=== PATIENT | female | born 1980 | race Caucasian/White ===

== ENCOUNTER 2018-10-22 07:49 | Emergency (ER) | payer BC ==
[2018-10-22] MEDS ORDERED: traMADol HCL 50 MG TAB PO ONE (08:10)
[2018-10-22] MEDS ORDERED: IBUPROFEN 200 MG TAB PO ONE (08:10)
--- NOTE | 2018-10-22 08:14 | ED.PDOC ---
History of Present Illness - General Chief Complaint: Lower Extremity Injury Stated Complaint: L knee discomfort Time Seen by Provider: 10/22/18 08:09 Source: patient Exam Limitations: no limitations - History of Present Illness Initial Comments: patient comes in today with severe left knee pain. Patient had bent the uriarte yesterday and fell into a hole filling a sudden pull on her leg. She did have pain at that time but she was able to weight-bear and went home and got rest. On awakening however she tried to get up and could not put any pressure on that knee. Patient states the pain is severe and she's never had injury to that knee before. She is otherwise healthy with no medical problems. Patient has no known drug allergies. Patient does take BuSpar for anxiety. Occurred: yesterday Pain - Lower Extremity: severe: Left Knee Method of Injury: twisted Improving Factors: immobilization Worsening Factors: movement Allergies/Adverse Reactions: Allergies NO KNOWN ALLERGY Allergy (Verified 10/22/18 07:55) Home Medications: Ambulatory Orders Buspirone HCl 15 mg PO BID 10/22/18 Tramadol HCl [Ultram] 50 mg PO TID PRN #10 tab 10/22/18 Review of Systems - Review of Systems Constitutional: States: no symptoms reported. Denies: chills, fever EENTM: States: no symptoms reported. Denies: blurred vision, ear discharge Respiratory: States: no symptoms reported. Denies: cough, short of breath Cardiology: States: no symptoms reported. Denies: chest pain, palpitations Gastrointestinal/Abdominal: States: no symptoms reported. Denies: abdominal pain Genitourinary: States: no symptoms reported Musculoskeletal: States: see HPI Past Medical History (General) - Patient Medical History Hx Stroke: No Hx Congestive Heart Failure: No Hx Diabetes: No Hx MRSA: No - Vaccination History Hx Influenza Vaccination: No Hx Pneumococcal Vaccination: No - Social History Hx Tobacco Use: No Hx Alcohol Use: Yes - Social - Female History Patient is a Female of Child Bearing Age (10 -59 yrs old): Yes Patient : No Family Medical History - Family History Mother Living Status: Still Living Hx Cardiac Disease: Yes - High cholesterol Physical Exam - Physical Exam General Appearance: Alert, Comfortable, No apparent distress Eyes, Ears, Nose, Throat: PERRL/EOMI Cardiovascular/Respiratory: regular rate, rhythm, no M/R/G, normal breath sounds, no respiratory distress Gastrointestinal/Abdominal: non-tender Knee: joint effusion, limited ROM - increased laxity of the posterior and anterior ligament Progress - Results/Orders Results/Orders: Knee Xray no fracture Departure - Departure Clinical Impression: Knee ligamentous laxity Qualifiers: Laterality: left Qualified Code(s): M23.92 - Unspecified internal derangement of left knee Disposition: Discharge to Home or Self Care Condition: Fair Departure Forms: ED Discharge - Pt. Copy, Patient Portal Self Enrollment Instructions: DI for Leg Pain Referrals: Pancho Hernandez MD [Primary Care Provider] - 1-2 Weeks Prescriptions: Tramadol HCl [Ultram] 50 mg PO TID PRN #10 tab PRN Reason: Pain Home Medications: Ambulatory Orders Buspirone HCl 15 mg PO BID 10/22/18 Tramadol HCl [Ultram] 50 mg PO TID PRN #10 tab 10/22/18 Additional Instructions: ice and OTC IBU 800 mg po tid prn pain, Follow up in am in the clinic to discuss if MRI needed to examine ligaments for suspected tear and possible drainage of effusion.
[2018-10-22 08:36] VITALS: BP 110/73; TEMP 97.8; O2SAT 99
--- NOTE | 2018-10-22 08:37 | RAD ---
EXAM: Knee,Left 2 or More Views CLINICAL INDICATION: Left knee pain COMPARISON: There is no previous study for comparison. FINDINGS: Three views of the left knee reveal no evidence of fracture. There is no knee joint effusion. No significant degenerative joint disease is identified. The osseous structures are intact and unremarkable. IMPRESSION: Negative left knee radiographs. Electronically signed by: jK Sullivan MD 10/22/2018 8:34 AM CDT
== END 2018-10-22 08:56 | disposition home or self-care (01) ==
LOC: ER 07:49
DX: M23.8X2 Other internal derangements of left knee (principal); F41.9 Anxiety disorder, unspecified; Z79.899 Other long term (current) drug therapy

== ENCOUNTER → 2019-11-08 | Outpatient (CLI) | payer BC | LOC: GMAJ 15:11 | PROVIDERS: ATTEND Family Medicine | DX: M15.0 Primary generalized (osteo)arthritis (principal); Z20.828 Contact with and (suspected) exposure to other viral communicable diseases ==